=== PATIENT | male | born 1995 | race Hispanic/Latino ===

== ENCOUNTER 2019-09-20 08:11 | Emergency (ER) | payer SELFPAY ==
[~2019-09-20] VITALS: Ht 171.4 cm; Wt 61.4 kg
[2019-09-20] MEDS ORDERED: AZITHROMYCIN 250 MG TAB PO SCH (09:00)
[2019-09-20] MEDS ORDERED: CEFTRIAXONE SOD 500 MG VIAL IM ONE (09:00)
--- NOTE | 2019-09-20 09:00 | Emergency Department Note ---
History of Present Illnes History of Present Illness Chief Complaint: Genitourinary History of Present Illness This is a 24 year old male, with no significant past medical history, who pre sents with a 2-3 week history of intermittent burning with urination. He denies any penile discharge, abdominal pain, fever, nausea, or vomiting. He has had unprotected intercourse with his girlfriend. He denies any previous history of STDs. Patient's girlfriend reportedly was seen and treated for possible STD yesterday at another facility. Historian: Patient Arrival Mode: Car Boilermaker Apprentice Required: Yes (Patient speaks fair Micronesian, but wanted his friend to translate via phone, which he did. ) Onset (how long ago): week(s) (2) Location: penis Quality: burning Radiation: Reports non-radiation Severity: mild Onset quality: sudden Duration (how long): week(s) (2) Timing of current episode: intermittent Progression: unchanged Chronicity: new Context: Denies recent illness, Denies recent surgery Relieving factors: none Exacerbating factors: none Associated symptoms: Reports denies other symptoms Treatments prior to arrival: none Risk factors: unprotected intercourse Past Medical/Family History Physician Review I have reviewed the patient's past medical and family history. Any updates have been documented here. Past Medical History Recent Fever: No Clinical Suspicion of Infectio: No New/Unexplained Change in Ment: No Past Medical History: None Past Surgical History: None Social History Smoking Cessation: Never Smoker Counseling Performed: No Alcohol Use: None Any Illegal Drug Use: No TB Exposure/Symptoms: No Physically hurt or threatened: No Family History Family history of heart diseas: No Other Last Tetanus: unknown, likely age 13 yrs. Any Pre-Existing Lines (PICC,: No Review of Systems Review of Systems Constitutional: Denies chills, Denies fever, Denies malaise, Denies weakness EENTM: Reports no symptoms Cardiovascular: Reports no symptoms Respiratory: Reports no symptoms Gastrointestinal: Denies abdominal pain, Denies diarrhea, Denies nausea, Denies vomiting Genitourinary: Reports dysuria; Denies discharge, Denies frequency, Denies hematuria, Denies pain Musculoskeletal: Denies back pain, Denies joint pain, Denies joint swelling, Denies muscle pain Integumentary: Reports no symptoms Neurological: Reports no symptoms Psychological: Reports no symptoms Review of other systems: All other systems negative Physical Exam Related Data Allergies: Coded Allergies: No Known Allergies (Unverified , 09/20/19) Triage Vital Signs Vital Signs Date Time Temp Pulse Resp B/P (MAP) Pulse Ox O2 Delivery O2 Flow Rate FiO2 09/20/19 08:28 99.1 94 18 145/82 100 Room Air Vital signs reviewed: Yes Physical Exam CONSTITUTIONAL Constitutional: Present well-developed, Present well-nourished HENT HENT: Present normocephalic, Present atraumatic, Present oropharynx clear/moist, Present nose normal HENT L/R: Present left ext ear normal, Present right ext ear normal EYES Eyes: Reports PERRL, Reports conjunctivae normal NECK Neck: Present ROM normal PULMONARY Pulmonary: Present effort normal, Present breath sounds normal CARDIOVASCULAR Cardiovascular: Present regular rhythm, Present heart sounds normal, Present capillary refill normal, Present normal rate GASTROINTESTINAL Abdominal: Present soft, Present nontender, Present bowel sounds normal GENITOURINARY Genitourinary: Present exam deferred SKIN Skin: Present warm, Present dry MUSCULOSKELETAL Musculoskeletal: Present ROM normal NEUROLOGICAL Neurological: Present alert, Present oriented x 3, Present no gross motor or sensory deficits PSYCHOLOGICAL Psychological: Present mood/affect normal, Present judgement normal Results Laboratory Laboratory UA - negative, except for trace ketones; GC/Chlamydia PCR - pending; Lab results reviewed: Yes Assessment & Plan Medical Decision Making MDM Wear condoms with EVERY sexual encounter Follow-up on results of today's STD testing in 4-5 days, by calling Medical Records at [facility] [phone]. Assessment & Plan Final Impression: (1) High risk sexual behavior (2) Possible exposure to STD Depart Disposition: HOME, SELF-CARE Last Vital Signs Date Time Temp Pulse Resp B/P (MAP) Pulse Ox O2 Delivery O2 Flow Rate FiO2 09/20/19 08:28 99.1 94 18 145/82 100 Room Air Medications in the ED Ceftriaxone Sodium 250 mg ONCE ONCE IM ; Start 09/20/19 at 09:00; Stop 09/20/19 at 09:01; Status UNV Azithromycin 1,000 mg DAILY PO ; Start 09/20/19 at 09:00; Stop 09/27/19 at 08:59; Status UNV MOY PEACOCK MD Sep 20, 2019 09:00
[2019-09-20] MEDS ORDERED: CEFTRIAXONE SOD 500 MG VIAL ONE (09:01)
== END 2019-09-20 09:45 | disposition home or self-care (01) ==
LOC: FSED 08:11
DX: Z20.2 Contact with and (suspected) exposure to infections with a predominantly sexual mode of transmission (principal); R30.0 Dysuria
CPT/HCPCS: 81003; 96372; 99283; J0696